=== PATIENT | female | born 1985 | race Two or more races ===

== ENCOUNTER 2017-07-17 10:30 | Inpatient (IN) | payer OTHER ==
[~2017-07-17] VITALS: Ht 154.9 cm; Wt 3.2 kg
[2017-07-17] MEDS ORDERED: PRENATABS FA T1 EACH PO (13:50)
== END 2017-07-25 12:21 | DRG 766 ==
LOC: SURG-SUITE 07-22 08:18 → O/R 07-22 08:18 → LDR 07-22 08:30 → SURG-SUITE 07-22 13:40 → LDR 07-27 10:30
PROVIDERS: Obstetrics & Gynecology
PROC: 4A1HXCZ Monitoring of Products of Conception, Cardiac Rate, External Approach (ICD-10-PCS; 2017-07-22)
PROC: 10D00Z1 Extraction of Products of Conception, Low, Open Approach (ICD-10-PCS; principal; 2017-07-22 08:30)
DX: O34.211 Maternal care for low transverse scar from previous cesarean delivery (principal); Z3A.39 39 weeks gestation of pregnancy; Z37.0 Single live birth